=== PATIENT | male | born 1985 | race Caucasian/White ===

== ENCOUNTER 2017-10-23 18:56 | Emergency (ER) | payer MEDICAID, MEDICARE ==
[2017-10-23] MEDS ORDERED: busPIRone 10 MG Tab PO ONE (20:09)
--- NOTE | 2017-10-23 20:12 | EDM.PDOCBH ---
ED HPI GENERAL MEDICAL PROBLEM - General Chief Complaint: Behavioral/Psych Stated Complaint: EVAL Time Seen by Provider: 10/23/17 20:00 Source of Information: Reports: Patient History Limitations: Reports: No Limitations - History of Present Illness INITIAL COMMENTS - FREE TEXT/NARRATIVE: 32-year-old male comes in from [facility] after being there for the last 4 days, very anxious and feels like he needs his regular medications. He was not on his medications while in alf and did fine without them, but there is too much "down time" at the detox center and he feels he needs his medications. He was talking to the counselor and mildly mentioned he feels like he could hurt himself so they sent him in. He denies any suicidal thoughts at this time but is very anxious about his medications. He is hoping to be placed on gabapentin and trazodone. Onset: Unknown/Unsure Associated Symptoms: Reports: No Other Symptoms - Related Data Allergies Allergy/AdvReac Type Severity Reaction Status Date / Time No Known Allergies Allergy Verified 10/23/17 19:39 Home Meds: Home Meds Divalproex Sodium [Depakote ER] 3 tab PO BEDTIME 10/23/17 [History] PARoxetine HCl [Paxil] 1 tab PO DAILY 10/23/17 [History] Ranitidine [Zantac] 1 tab PO BEDTIME 10/23/17 [History] busPIRone HCl [Buspirone HCl] 1 tab PO DAILY 10/23/17 [History] cloNIDine [Catapres] 1 tab PO BEDTIME 10/23/17 [History] cloNIDine [Catapres] 1 tab PO BID 10/23/17 [History] Past Medical History Psychiatric History: Reports: Antisocial Behaviors, Anxiety, Bipolar, PTSD - Past Surgical History Musculoskeletal Surgical History: Reports: Shoulder Surgery Social & Family History - Tobacco Use Smoking Status *Q: Current Every Day Smoker Years of Tobacco use: 15 Packs/Tins Daily: 1.5 ED ROS GENERAL - Review of Systems Review Of Systems: See Below Constitutional: Denies: Fever Respiratory: Denies: Shortness of Breath GI/Abdominal: Denies: Nausea, Vomiting Neurological: Reports: Dizziness. Denies: Headache Psychiatric: Reports: Anxiety ED EXAM, BEHAVIORAL HEALTH - Physical Exam Exam: See Below Exam Limited By: No Limitations General Appearance: Alert, No Apparent Distress, Anxious Respiratory/Chest: No Respiratory Distress, Lungs Clear Cardiovascular: Regular Rate, Rhythm. No: Tachycardia Neurological: Alert, Oriented x 3 Psychiatric: No: Depressed Mood, Agitated Skin Exam: Warm, Dry COURSE, BEHAVIORAL HEALTH COMP - Course Vital Signs: Last Vital Signs Temp 98.2 F 10/23/17 19:52 Pulse 98 10/23/17 19:52 Resp 12 10/23/17 19:52 BP 148/99 H 10/23/17 19:52 Pulse Ox 94 L 10/23/17 19:52 Orders, Labs, Meds: Medications Discontinued Medications Generic Name Dose Route Start Last Admin Trade Name Freq PRN Reason Stop Dose Admin Buspirone HCl 10 mg 10/23/17 20:09 10/23/17 20:26 Buspar PO 10/23/17 20:10 10 mg ONETIME ONE Administration Re-Assessment/Re-Exam: Discussed with Dr. Chambers and the patient was given 10 mg of BuSpar and continue 10 mg twice a day for the next [address]. [address] a [address] appointment tomorrow morning that he is insistent that he has to make an he will not hurt himself. He's working with the treatment center to get him to another center that will allow him to take his medications. Departure - Departure Time of Disposition: 21:02 Disposition: DC/Tfer to Other 70 Condition: Fair Clinical Impression: Anxiety - Discharge Information Instructions: Generalized Anxiety Disorder, Adult Referrals: PCP,None [Primary Care Provider] - Forms: ED Department Discharge Care Plan Goals: Take buspirone as directed for the next 5 days and continue your other regular medications per Macey Schwarz.
== END 2017-10-23 21:03 | disposition other institution (70) ==
LOC: JP.ED 18:56
DX: F41.9 Anxiety disorder, unspecified (principal); F17.210 Nicotine dependence, cigarettes, uncomplicated
CPT/HCPCS: 99283; A9270